=== PATIENT | female | born 1985 | race Caucasian/White ===

== ENCOUNTER → 2017-12-17 09:24 | Outpatient (CLI) | payer OTHER, SELFPAY ==
--- NOTE | 2017-12-17 09:27 | RAD_ITS ---
STUDY: X-RAY - RIGHT FOOT CLINICAL: Female, 32 years old. Continued pain and swelling 5 days after injury. TECHNIQUE: 2 view(s) of the foot. COMPARISON: None. FINDINGS: Normal talus, calcaneus, and tarsal bones. Normal visualized subtalar, talonavicular, calcaneocuboid, tarsal and tarsometatarsal articulations. Normal metatarsi. Normal metatarsophalangeal joint of the great toe. Normal tibial and fibular sesamoid bones. Mild valgus deviation at the interphalangeal joint of the great toe. Subcortical cystic degenerative changes seen in the medial head of the first proximal phalanx. There is periarticular spurring at the medial base of the first distal phalanx. Normal second through fifth metatarsophalangeal joints. Normal interphalangeal joints and phalanges of the lesser toes. There is anterior soft tissue swelling extending from the ankle to the bases of the toes. There is no demonstrated fracture. RAD/Foot 2 Views IMPRESSION: Soft tissue swelling. No acute fracture of the right foot. Electronically Signed: Matthias Nathan MD at 19:54 EDT , Service support ,
--- NOTE | 2017-12-17 09:28 | RAD_ITS ---
STUDY: X-RAY - RIGHT ANKLE REASON FOR EXAM: Female, 32 years old. Ankle injury 5 days ago with continued pain and swelling. TECHNIQUE: 3 view(s) of the ankle. COMPARISON: None. FINDINGS: Normal visualized distal tibia and fibula. Normal medial and lateral malleoli. Normal tibiotalar articulation and ankle mortise. Normal visualized talus and calcaneus. The visualized subtalar, talonavicular, calcaneocuboid and tarsal articulations are normal. There is no demonstrated fracture. There is soft tissue swelling about the ankle, more prominent anteriorly and laterally. RAD/Ankle min 3 Views IMPRESSION: Soft tissue swelling. No acute fracture of the right ankle. Electronically Signed: Matthias Nathan MD at 19:53 EDT , Service support ,
== END ==
PROVIDERS: Family Provider Internal Medicine; PCP Internal Medicine; Visit Provider Internal Medicine
DX: S99.921A Unspecified injury of right foot, initial encounter (principal); W19.XXXA Unspecified fall, initial encounter; Y93.9 Activity, unspecified; Y92.9 Unspecified place or not applicable
CPT/HCPCS: 73610; 73620

== ENCOUNTER → 2025-03-11 | Outpatient (CLI) | payer OTHER, SELFPAY ==
--- OUTSIDE RECORDS SUMMARY | 2025-03-11 19:36 | XMS RPT_ITS | CCD ---
Author Organization [facility] [place] Care Team Providers Care Solar Installation Helper Name Role Phone Alysia Mathias Referring Unavailable Alysia Mathias Primary Care Unavailable Estrella Estes Attending Unavailable Stew CR, Dr. Hatfield Primary Care Provider Stew CR, Dr. Hatfield Referring Provider Estrella Oliveira Attending Provider [phone] Medications Current Medications Medication Drug Class(es) Dates Sig (Normalized) Sig (Original) Belfry (Nk) (1 source) Start: 03-11-2025 Belfry (Nk) A ctive March 11, 2025 12:00am Completed/Discontinued Medications Medication Drug Class(es) Dates Sig (Normalized) Sig (Original) adaptic (1 source) Start: 12-17-2017 End: 03-10-2025 adaptic Discontinued December 17, 2017 12:00am March 10, 2025 1:05pm As directed Norgestimate-Ethi nyl Estradiol (1 source) Progestin, Estrogen Start: 07-02-2017 End: 03-10-2025 take 1 tablet by mouth once daily Norgestimate-Ethin yl Estradiol (Tri-Sprintec (28)) 1 EACH tablet Discontinued 1 NMA PO DAILY July 02, 2017 12:00am March 10, 2025 1:05pm ibuprofen 200 mg oral tablet (1 source) Nonsteroidal Anti-inflammatory Drug Start: 07-05-2017 End: 03-10-2025 take 200-400 mg by mouth every six hours as needed for fever Ibuprofen 200 MG tablet Discontinued 200 - 400 mg PO EVERY 6 HOURS as needed for FEVER July 05, 2017 12:00am March 10, 2025 1:05pm Problems Problem Classification Problem Date Documented Da te Episodic/Chronic Abdominal hernia (1 source) Hiatal hernia; Translations: [Diaphragmatic hernia without obstruction or gangrene] 07-04-2017 Episodic Esophageal disorders (1 source) Gastroesophageal reflux disease; Translations: [Gastro-esophageal reflux disease without esophagitis] 12-17-2017 Chronic Fever of unknown origin (1 source) Fever; Translations: [Fever, unspecified] 07-04-2017 Episodic Other injuries and conditions due to external causes (1 source) Injury of right foot; Translations: [Unspecified injury of right foot, initial encounter] 12-17-2017 Episodic Sprains and strains (1 source) Sprain of right ankle; Translations: [Sprain of unspecified ligament of right ankle, initial encounter] 01-02-2018 Episodic Vital Signs Date Time Vital Sign Value Performing Clinician Neel frederick 03-11-2025 08:57-0400 Body height 160.[address] Alysia Mathias MD Work Phone: [facility] 03-11-2025 08:57-0400 Body mass index (BMI) [Ratio] 25.9 kg/m2 Dr. Alysia Mathias MD Work Phone: [facility] 03-11-2025 08:57-0400 Body weight 66.[address] Alysia Mathias MD Work Phone: [facility] 03-11-2025 08:57-0400 Diastolic blood pressure 73 mm[Hg] Dr. Alysia Mathias MD Work Phone: [facility] 03-11-2025 08:57-0400 Systolic blood pressure 116 mm[Hg] Dr. Alysia Mathias MD Work Phone: [facility] Encounters Encounter Date Encounter Type Care Provider Facility Start: 03-11-2025 End: 03-11-2025 ambulatory Alysia Mathias Facility:[facility] Start: 03-11-2025 End: 03-11-2025 Patient encounter procedure Estrella CARPIO -[facility] [place] Work Phone: Start: 03-11-2025 End: 03-11-2025 Patient encounter status Estrella CARPIO [facility] Plan of Treatment Date Care Activity Detail Author Liquid based cervical cytology screening [facility] Payers Date Payer Category Payer Self-pay 2024 Unknown [id number] Unknown [id number] Social History Date Type Detail Facility Start: 03-11-2025 Tobacco smoking stat us NHIS Never smoked tobacco (finding) [facility] Start: 07-04-2017 Alcohol Alcohol [facility] Start: 07-04-2017 Tobacco Use Tobacco Use [facility] Start: 1985 Sex Assigned At Female [facility] Evaluation note Note Date & Type Note Facility Evaluation note Diagnosis Onset Date Resolution Encounter for routine gynecological examination noneactive March 11, 2025 8:54am [facility] [employer] Work Phone: Reason for referral (narrative) Note Date & Type Note Facility Reason for referral (narrative) No reason for referral information available [facility] Work Phone: Summary Purpose Family History Relationship Condition Age at Onset Recorded Date/T kayleen father Hypertension Unknown Malignant neoplasm Unknown mother Disorder of thyroid Unknown uncle Malignant neoplasm Unknown Advance Directives No Advanced Directives Records Found Chief Complaint and Reason for Visit Chief Complaint Admit Date Annual ([employer]) March 11, 2025 8:54 am Reason for Visit Admit Date Encounter for routine gynecological exam ination March 11, 2025 8:54am Additional Source Comments INFORMATION SOURCE (unrecogn ized section and content) DATE CREATED AUTHOR 03/04/2025 [facility] Care Teams (unrecognized sec tion and content) Team Status: Active Member Role Status Dates Dr. Alysia Mathias MD Family Provider Active Dr. Alysia Mathias MD Primary Care Provider Active Team Status: Inactive Member Role Status Dates Dr. Alysia Mathias MD Primary Care Provider Active Start: March 11, 2025 End: March 11, 2025 Dr. Alysia Mathias MD Referring Provider Active Start: March 11, 2025 End: March 11, 2025 SHIRIN Gracia Attending Provider Active Start: March 11, 2025 End: March 11, 2025 Goals (unrecognized section and content) Goals may be documented in a n alternate section FOR RECORDS PERTAINING TO PATIENTS WHO ARE OR HAVE BEEN ENROLLED IN A CHEMICAL DEPENDENCY/SUBSTANCEABUSE PROGRAM, SOME INFORMATION MAY BE OMITTED. This clinical summary was aggregated from multiple sources. Caution should be exercised in using it in the provision of clinical care. This summary normalizes information from multiple sources, and as a consequence, information in this document may materially change the coding, format and clinical context of patient data. In addition, data may be omitted in some cases. CLINICAL DECISIONS SHOULD BE BASED ON THE PRIMARY CLINICAL RECORDS. [facility]. provides no warranty or guarantee of the accuracy or completeness of information in this document.
== END | disposition home or self-care (01) ==
LOC: LABSPEC 09:40
PROVIDERS: PCP Internal Medicine; Referring Provider Nurse Practitioner Family; Visit Provider Nurse Practitioner Family
DX: Z12.4 Encounter for screening for malignant neoplasm of cervix (principal)
CPT/HCPCS: 87624; 88175; G0145

== ENCOUNTER 2025-03-30 13:59 | Outpatient (CLI) | payer OTHER, SELFPAY ==
--- NOTE | 2025-03-30 14:00 | BI_ITS ---
EXAM: DIAG MAMM W/CAD, BILAT; BREAST LIMITED UNILATERAL; BILAT BRST LILLIE STAND ALONE 03/30/2025 CLINICAL HISTORY: F, Age 40 y/o , SCREEN BREAST CANCER, BREAST LUMP; BREAST LUMP; RT. BREAST LUMP TECHNIQUE: DIAG MAMM W/CAD, BILAT; BREAST LIMITED UNILATERAL; BILAT BRST LILLIE STAND ALONE. COMPARISON: Baseline examination, no priors. FINDINGS: MAMMOGRAM: TISSUE DENSITY: The breasts are heterogeneously dense, which may obscure small masses. The mammogram demonstrates that the patient has dense breasts. Supplemental screening with whole breast ultrasound or MRI may be considered for further evaluation. Bilateral Breast Mammographic Findings: No significant masses, calcifications or other abnormalities are identified. ULTRASOUND: Ultrasound of the area of clinician concern in the right breast at 12 o'clock demonstrates no suspicious sonographic findings. 1 BI/Bilat Brst Lillie Stand Alone IMPRESSION: 1. There are no suspicious mammographic or sonographic findings in the area of clinician concern in the right breast. 2. There is no mammographic evidence of malignancy in either breast. OVERALL FINAL ASSESSMENT BI-RADS 1: NEGATIVE. RECOMMEND ANNUAL MAMMOGRAPHIC SCREENING. RECOMMENDATION: Routine annual follow-up in 1 Year A letter with findings and recommendations will be mailed to the patient. Reading Location: [id number]
--- NOTE | 2025-03-30 14:14 | BI_ITS ---
EXAM: DIAG MAMM W/CAD, BILAT; BREAST LIMITED UNILATERAL; BILAT BRST LILLIE STAND ALONE 03/30/2025 CLINICAL HISTORY: F, Age 40 y/o , SCREEN BREAST CANCER, BREAST LUMP; BREAST LUMP; RT. BREAST LUMP TECHNIQUE: DIAG MAMM W/CAD, BILAT; BREAST LIMITED UNILATERAL; BILAT BRST LILLIE STAND ALONE. COMPARISON: Baseline examination, no priors. FINDINGS: MAMMOGRAM: TISSUE DENSITY: The breasts are heterogeneously dense, which may obscure small masses. The mammogram demonstrates that the patient has dense breasts. Supplemental screening with whole breast ultrasound or MRI may be considered for further evaluation. Bilateral Breast Mammographic Findings: No significant masses, calcifications or other abnormalities are identified. ULTRASOUND: Ultrasound of the area of clinician concern in the right breast at 12 o'clock demonstrates no suspicious sonographic findings. 1 BI/DIAG MAMM W/CAD, BILAT IMPRESSION: 1. There are no suspicious mammographic or sonographic findings in the area of clinician concern in the right breast. 2. There is no mammographic evidence of malignancy in either breast. OVERALL FINAL ASSESSMENT BI-RADS 1: NEGATIVE. RECOMMEND ANNUAL MAMMOGRAPHIC SCREENING. RECOMMENDATION: Routine annual follow-up in 1 Year A letter with findings and recommendations will be mailed to the patient. Reading Location: [id number]
--- NOTE | 2025-03-30 15:00 | US_ITS ---
EXAM: DIAG MAMM W/CAD, BILAT; BREAST LIMITED UNILATERAL; BILAT BRST LILLIE STAND ALONE 03/30/2025 CLINICAL HISTORY: F, Age 40 y/o , SCREEN BREAST CANCER, BREAST LUMP; BREAST LUMP; RT. BREAST LUMP TECHNIQUE: DIAG MAMM W/CAD, BILAT; BREAST LIMITED UNILATERAL; BILAT BRST LILLIE STAND ALONE. COMPARISON: Baseline examination, no priors. FINDINGS: MAMMOGRAM: TISSUE DENSITY: The breasts are heterogeneously dense, which may obscure small masses. The mammogram demonstrates that the patient has dense breasts. Supplemental screening with whole breast ultrasound or MRI may be considered for further evaluation. Bilateral Breast Mammographic Findings: No significant masses, calcifications or other abnormalities are identified. ULTRASOUND: Ultrasound of the area of clinician concern in the right breast at 12 o'clock demonstrates no suspicious sonographic findings. 1 US/Breast Limited Unilateral IMPRESSION: 1. There are no suspicious mammographic or sonographic findings in the area of clinician concern in the right breast. 2. There is no mammographic evidence of malignancy in either breast. OVERALL FINAL ASSESSMENT BI-RADS 1: NEGATIVE. RECOMMEND ANNUAL MAMMOGRAPHIC SCREENING. RECOMMENDATION: Routine annual follow-up in 1 Year A letter with findings and recommendations will be mailed to the patient. Reading Location: [id number]
== END 2025-03-30 23:59 | disposition home or self-care (01) ==
PROVIDERS: PCP Internal Medicine; Referring Provider Nurse Practitioner Family; Visit Provider Nurse Practitioner Family
DX: N63.10 Unspecified lump in the right breast, unspecified quadrant (principal)
CPT/HCPCS: 76642; 77062; 77066; G0279